=== PATIENT | female | born 1950 | race Caucasian/White ===

== ENCOUNTER 2021-05-27 21:55 | Emergency (ER) | payer OTHER ==
[~2021-05-27] VITALS: Ht 165.1 cm; Wt 81.7 kg
[~2021-05-27 21:55] MED LIST: COZAAR 25 MG TA25 M2 PO; TRAMADOL 50 MG50 MG PO
[2021-05-27] MEDS ORDERED: DULCOLAX STOOL100 M1 PO (22:14)
[2021-05-27] MEDS ORDERED: FEXOFENADINE-P1 EACH PO (22:15)
[2021-05-27] MEDS ORDERED: GOCOVRI68.5 MG PO (22:15)
[2021-05-28] MEDS ORDERED: KEFLEX250 MG PO (00:28)
[2021-05-28 00:53] VITALS: BP 145/79
== END 2021-05-28 00:55 | disposition home or self-care (01) ==
LOC: M.ERS 21:55
DX: S05.32XA Ocular laceration without prolapse or loss of intraocular tissue, left eye, initial encounter (principal); I10 Essential (primary) hypertension; Z90.89 Acquired absence of other organs; Z79.899 Other long term (current) drug therapy; Z88.0 Allergy status to penicillin; Z98.51 Tubal ligation status; W19.XXXA Unspecified fall, initial encounter; Y93.89 Activity, other specified; Y92.89 Other specified places as the place of occurrence of the external cause; Y99.8 Other external cause status